=== PATIENT | male | born 1960 | race Caucasian/White ===

== ENCOUNTER 2020-08-16 10:12 | Day surgery (SDC) | payer OTHER, SELFPAY ==
[2020-08-11 20:56] VITALS: BMI 28.8
--- NOTE | 2020-08-15 12:28 | P.CONAN_ITS ---
HPI - Anesthesia Eval Consult details Narrative: 59yo M for Colonoscopy [facility] Past Medical History Medical History CHF (congestive heart failure) COPD (chronic obstructive pulmonary disease) HTN (hypertension) Smoker Family History Family History Father CVD (cardiovascular disease) Hypertension Mother No problems noted. Family/Other Hx of substance abuse Surgical History Surgical History History of cholecystectomy History of colonoscopy History of hernia repair History of tonsillectomy Ruptured appendix Social History Social History Smoking Status: Current every day smoker Packs Per Day: 0.5 Cigarettes Per Day: 10.0 Years Smoked: 40 Smoked in Last 30 Days: Yes Smoking Quit Date: Thang Patient Interested in Nicotine Replacement: No Patient Given Instructions on How to Stop Smoking: No Second Hand Smoke Exposure: No Use of substances other than those prescribed or required for medical reasons: No Advance Directives: No Advance Directives Information Provided: No Advance Directives on File: No Meds Allergies Allergy/AdvReac Type Severity Reaction Status Date / Time No Known Allergies Allergy Verified 07/25/20 11:13 Home Medications Medication Instructions Recorded Confirmed Type albuterol sulfate 90 mcg/actuation 1 puff PO Q4H PRN 07/25/20 08/11/20 History aerosol inhaler carvedilol 12.5 mg tablet 12.5 mg PO BID 07/25/20 08/11/20 History furosemide 40 mg tablet 40 mg PO DAILY 07/25/20 08/11/20 History lisinopril 10 mg tablet 10 mg PO DAILY 07/25/20 08/11/20 History spironolactone 25 mg tablet 25 mg PO DAILY 07/25/20 08/11/20 History umeclidinium 62.5 mcg/actuation 1 inh PO DAILY 07/25/20 08/11/20 History blister powder for inhalation Exam Exam Date and Time: August 15, 2020 1228 Height,Weight and Vital Signs: Height 5 ft 9 in Weight 88.451 kg Pertinent Lab Results Pertinent Lab Results: Laboratory Tests 05/02/20 08:30 Sodium 140 Potassium 4.2 Chloride 104 BUN 14 Creatinine 0.95 Narrative Narrative: EKG 04/2020: SR @80 with freq PVC, nonspecific T wave abn Assessment and Plan Assessment Anesthesia Assessment: Chart Reviewed
[2020-08-16 11:01] VITALS: BP 113/63; PULSE 88; RESP 16; TEMP 36; O2SAT 99
[2020-08-16 11:08] VITALS: BMI 28.8
--- NOTE | 2020-08-16 11:14 | P.CONAN_ITS ---
[facility] Past Medical History Medical History CHF (congestive heart failure) COPD (chronic obstructive pulmonary disease) HTN (hypertension) Smoker Family History Family History Father CVD (cardiovascular disease) Hypertension Mother No problems noted. Family/Other Hx of substance abuse Surgical History Surgical History History of cholecystectomy History of colonoscopy History of hernia repair History of tonsillectomy Ruptured appendix Social History Social History Smoking Status: Current every day smoker Packs Per Day: 0.5 Cigarettes Per Day: 10.0 Years Smoked: 40 Smoked in Last 30 Days: Yes Smoking Quit Date: Thang Patient Interested in Nicotine Replacement: No Patient Given Instructions on How to Stop Smoking: No Second Hand Smoke Exposure: No Use of substances other than those prescribed or required for medical reasons: No Advance Directives: No Advance Directives Information Provided: No Advance Directives on File: No Meds Allergies Allergy/AdvReac Type Severity Reaction Status Date / Time No Known Allergies Allergy Verified 07/25/20 11:13 Home Medications Medication Instructions Recorded Confirmed Type albuterol sulfate 90 mcg/actuation 1 puff PO Q4H PRN 07/25/20 08/11/20 History aerosol inhaler carvedilol 12.5 mg tablet 12.5 mg PO BID 07/25/20 08/11/20 History furosemide 40 mg tablet 40 mg PO DAILY 07/25/20 08/11/20 History lisinopril 10 mg tablet 10 mg PO DAILY 07/25/20 08/11/20 History spironolactone 25 mg tablet 25 mg PO DAILY 07/25/20 08/11/20 History umeclidinium 62.5 mcg/actuation 1 inh PO DAILY 07/25/20 08/11/20 History blister powder for inhalation Exam Exam Date and Time: August 16, 2020 1114 Height,Weight and Vital Signs: Height 5 ft 9 in Weight 88.451 kg Last Vital Signs Temp 96.8 F 08/16/20 11:01 Pulse 88 08/16/20 11:01 Resp 16 08/16/20 11:01 BP 113/63 08/16/20 11:01 Pulse Ox 99 08/16/20 11:01 Airway Mallampati Class: I TM Dist: >3cm Neck ROM: Full Heart: RRR Lungs: CTA
--- NOTE | 2020-08-16 11:15 | P.CONAN_ITS ---
[facility] Past Medical History Medical History CHF (congestive heart failure) COPD (chronic obstructive pulmonary disease) HTN (hypertension) Smoker Family History Family History Father CVD (cardiovascular disease) Hypertension Mother No problems noted. Family/Other Hx of substance abuse Surgical History Surgical History History of cholecystectomy History of colonoscopy History of hernia repair History of tonsillectomy Ruptured appendix Social History Social History Smoking Status: Current every day smoker Packs Per Day: 0.5 Cigarettes Per Day: 10.0 Years Smoked: 40 Smoked in Last 30 Days: Yes Smoking Quit Date: Thang Patient Interested in Nicotine Replacement: No Patient Given Instructions on How to Stop Smoking: No Second Hand Smoke Exposure: No Use of substances other than those prescribed or required for medical reasons: No Advance Directives: No Advance Directives Information Provided: No Advance Directives on File: No Meds Allergies Allergy/AdvReac Type Severity Reaction Status Date / Time No Known Allergies Allergy Verified 07/25/20 11:13 Home Medications Medication Instructions Recorded Confirmed Type albuterol sulfate 90 mcg/actuation 1 puff PO Q4H PRN 07/25/20 08/11/20 History aerosol inhaler carvedilol 12.5 mg tablet 12.5 mg PO BID 07/25/20 08/11/20 History furosemide 40 mg tablet 40 mg PO DAILY 07/25/20 08/11/20 History lisinopril 10 mg tablet 10 mg PO DAILY 07/25/20 08/11/20 History spironolactone 25 mg tablet 25 mg PO DAILY 07/25/20 08/11/20 History umeclidinium 62.5 mcg/actuation 1 inh PO DAILY 07/25/20 08/11/20 History blister powder for inhalation Exam Exam Date and Time: August 16, 2020 1115 Height,Weight and Vital Signs: Height 5 ft 9 in Weight 88.451 kg Last Vital Signs Temp 96.8 F 08/16/20 11:01 Pulse 88 08/16/20 11:01 Resp 16 08/16/20 11:01 BP 113/63 08/16/20 11:01 Pulse Ox 99 08/16/20 11:01 Assessment and Plan Assessment Anesthesia Assessment: Anesthesia Plan Discussed, Smoking Cess. Discussed and Chart Reviewed Final Anesthetic Review NPO: Yes ASA Class: III Final Preanesthetic Review: No Changes in Pt Med Stat, Meds/Allgs Chart Reviewed, Consent Obtained/Reviewed and Anes Risks/Benef Reviewed Patient Risk: Intermediate Procedure Risk: Low Anesthetic Plan Anesthetic Plan: MAC: Disposition: Standard PACU
--- NOTE | 2020-08-16 11:16 | MHC.SHP ---
Pre-Procedural Eval Section B Chief Complaint: Screening Details of Present Illness: Colon cancer Screening, No med or clinical changes since 06/02/20 Relevant Family History (Specify if Yes): No Relevant Social History: Tobacco Use (1/2ppd down from heavy) Present Medications: see Short Stay Collaborative assessment Medical History: Significant History (COPD, Hypertension, hx Congestive Failure) History of Previous Operations: Relevant previous surgery/procedure and date(s) (Hernia repair, gallbladder removal) Allergies: Allergies Allergy/AdvReac Type Severity Reaction Status Date / Time No Known Allergies Allergy Verified 07/25/20 11:13 Review of Systems Sugical H&P ROS: Negative: Constitution, Gastrointestinal and Musculoskeletal and Yes, Specify: Cardiovascular (? hx of CHF) and Respiratory (COPD--still smoking) Exam Surgical H&P Exam: Normal: HEENT, Normal: Heart and Normal: Abdomen (obese) and Significant Findings: Lungs (hyperresonant, rhonchi,) Plan Diagnosis/Plan: Unchanged Patient has been examined and remains a candidate for the planned procedure--YES
--- NOTE | 2020-08-16 11:31 | HO.ANESPROP2 ---
PENDING SALE TO [facility] Past Medical History Medical History CHF (congestive heart failure) COPD (chronic obstructive pulmonary disease) HTN (hypertension) Smoker Family History Family History Father CVD (cardiovascular disease) Hypertension Mother No problems noted. Family/Other Hx of substance abuse Surgical History Surgical History History of cholecystectomy History of colonoscopy History of hernia repair History of tonsillectomy Ruptured appendix Social History Social History Smoking Status: Current every day smoker Packs Per Day: 0.5 Cigarettes Per Day: 10.0 Years Smoked: 40 Smoked in Last 30 Days: Yes Smoking Quit Date: Thang Patient Interested in Nicotine Replacement: No Patient Given Instructions on How to Stop Smoking: No Second Hand Smoke Exposure: No Use of substances other than those prescribed or required for medical reasons: No Advance Directives: No Advance Directives Information Provided: No Advance Directives on File: No Meds Allergies Allergy/AdvReac Type Severity Reaction Status Date / Time No Known Allergies Allergy Verified 07/25/20 11:13 Home Medications Medication Instructions Recorded Confirmed Type albuterol sulfate 90 mcg/actuation 1 puff PO Q4H PRN 07/25/20 08/11/20 History aerosol inhaler carvedilol 12.5 mg tablet 12.5 mg PO BID 07/25/20 08/11/20 History furosemide 40 mg tablet 40 mg PO DAILY 07/25/20 08/11/20 History lisinopril 10 mg tablet 10 mg PO DAILY 07/25/20 08/11/20 History spironolactone 25 mg tablet 25 mg PO DAILY 07/25/20 08/11/20 History umeclidinium 62.5 mcg/actuation 1 inh PO DAILY 07/25/20 08/11/20 History blister powder for inhalation Exam Exam Date and Time: August 16, 2020 1131 Height,Weight and Vital Signs: Height 5 ft 9 in Weight 88.451 kg Last Vital Signs Temp 96.8 F 08/16/20 11:01 Pulse 88 08/16/20 11:01 Resp 16 08/16/20 11:01 BP 113/63 08/16/20 11:01 Pulse Ox 99 08/16/20 11:01
--- NOTE | 2020-08-16 12:08 | PM.PROC ---
Brief Operative Note Date of procedure: 08/16/20 Pre-op diagnosis: COLON CANCER SCREENING, NO KNOWN HIGH RISK Post-op diagnosis: other (SIGMOID POLYP, 2+ INTERNAL HEMORRHOIDS) Procedure: COLONOSCOPY WITH HOT SNARE POLYPECTOMY(ERBE) CAUTERY, RESOLUITION CLIPPING X1 Anesthesia: MAC (md AIME) Surgeon: Luz Saab Estimated blood loss (mL): 5 Pathology: other (POLYP--22 CM) Condition: stable Disposition: PACU
[2020-08-16 12:10] VITALS: BP 82/53; PULSE 89; RESP 16; TEMP 36.2; O2SAT 95
--- NOTE | 2020-08-16 12:14 | PM.PROC ---
Brief Operative Note Date of procedure: 08/16/20 Pre-op diagnosis: colon cancer screening Post-op diagnosis: other (Colon polyp, Internal hemorrhoids) Procedure: colonoscopy with hot snare polypectomy Resolution clipping (ERBE) Anesthesia: MAC (MD Catalino) Surgeon: Luz Saab Estimated blood loss (mL): 5 Pathology: other (polyp @ 22 cm) Condition: stable Disposition: PACU
[2020-08-16 12:25] VITALS: BP 111/79; PULSE 78; RESP 16; TEMP 36.2; O2SAT 98
--- NOTE | 2020-08-16 13:44 | HO.POSTANES ---
Post Anesthesia Evaluation Post Anesthesia Evaluation Vital Signs: Vital Signs Temp Pulse Resp BP Pulse Ox 08/16/20 12:25 97.1 F 78 16 111/79 98 08/16/20 12:10 97.1 F 89 16 82/53 L 95 08/16/20 11:01 96.8 F 88 16 113/63 99 Anesthesia: Monitored (tiva) Mental Status: Awake Pain Control: Satisfactory Nausea/Vomiting: None Hydration: Adequate Anesthesia-Related Issues: No Anes. Related Issues
== END 2020-08-16 13:27 | disposition home or self-care (01) ==
PROVIDERS: PCP Family Medicine; Visit Provider Internal Medicine Gastroenterology
PROC: 0DJD8ZZ Inspection of Lower Intestinal Tract, Via Natural or Artificial Opening Endoscopic (ICD-10-PCS; CPT 45378; principal; 2020-08-16 11:30)
DX: Z12.11 Encounter for screening for malignant neoplasm of colon (principal); D12.5 Benign neoplasm of sigmoid colon; I11.0 Hypertensive heart disease with heart failure; I50.9 Heart failure, unspecified; J44.9 Chronic obstructive pulmonary disease, unspecified; F17.210 Nicotine dependence, cigarettes, uncomplicated; Z90.49 Acquired absence of other specified parts of digestive tract; Z79.899 Other long term (current) drug therapy
CPT/HCPCS: 45385; 88305

== ENCOUNTER 2020-08-25 09:55 | Outpatient (REF) | payer OTHER, SELFPAY ==
--- NOTE | 2020-08-17 16:29 | OP_ITS ---
SURGEON: Luz Saab MD PREOPERATIVE DIAGNOSIS: Colon cancer screening, last exam more than 15 years ago. POSTOPERATIVE DIAGNOSIS: Adenomatous polyp at 22 cm, 2+ internal hemorrhoids. PROCEDURE PERFORMED: Colonoscopy with hot snare polypectomy (ERBE cautery use).Resolution clipping was done. ESTIMATED BLOOD LOSS: Minimal. COMPLICATIONS:NONE ANESTHESIA:Monitored ANESTHESIOLOGIST: Dr. Bae. ASSISTANTS: No curriculum assistant principal. PRIMARY CARE PROVIDER: Sandeep Saunders CNP PHOTOLITHOGRAPHER: Dr. Saab. SPECIMENS REMOVED: Polyp at 22 cm, short stalk. GRAFTS OR IMPLANTS: Resolution clipping was placed. No complications. FINDINGS: Digital rectal exam revealed prostate to be unremarkable. Video colonoscope was introduced without difficulty. It was navigated into the rectosigmoid and sigmoid on up through descending, transverse colon. There was a suggestion in the rectosigmoid prolapse movement through the area, demonstrated a mild rectocele which affected insertion. In addition, the patient was moved from his left side to his back to his right side. It was noted that he had a very distorted abdominal wall due to past surgical complication of a ventral hernia repair with dehiscence and prolonged hospitalization. Attempts to move the scope were limited by extrinsic abdominal adhesions. After multiple attempts, the plan was to slowly withdraw the scope. The prep was good. There was some turbid but nonfibrous residual fluid that was just flushed and suctioned. We came upon the polyp at 22 cm and removed it with hot snare cautery, clean base. Continued removal showed 2+ internal hemorrhoids in the anal canal. COMMENT: The patient states his abdominal surgery was approximately 5 years ago. He was hospitalized at [facility] for question 6 months period of time. During that admission, he had been in an induced coma. There was special equipment brought in to assist in the closure of the wound that dehisced. The skin texture change is due to pig skin graft to the remainder of the abdominal wall. We will explore CT imaging at some point in the next 6 months to outline the characteristics of the colonic architecture. Repeat screening timing will be dictated by those findings. Should not exceed 3 years. Luz Saab MD MEN/MODL / [id number] [facility]
--- NOTE | 2020-08-25 | PFT_ITS ---
INDICATION: COPD. SPIROMETRY: The FEV1 to FVC of 70% with an FEV1 of 2.56 L, which is 74% predicted and an FVC of 3.67 L, which is 80% predicted. No significant response to bronchodilators noted. To note, the [id number] is down to 41% predicted prior to bronchodilators. Maximum voluntary ventilation 58% predicted. LUNG VOLUMES: Total lung capacity 82% predicted with an expiratory reserve volume of 69% predicted and a residual volume of 101% predicted. DIFUSION CAPACITY: DLCO 55% predicted. COMPARISON: None. INTERPRETATION: There is an obstructive ventilatory defect consistent with moderate chronic obstructive pulmonary disease. No significant response to bronchodilators noted. There is also significant small airways disease from underlying chronic obstructive pulmonary disease. The patient has a low normal total lung capacity and a moderate diffusion impairment likely secondary to emphysema and all the parenchymal conditions should be considered. Clinical correlation warranted. Placido Waldrop MD MR/MODL / [id number]
== END 2020-08-25 09:56 | disposition home or self-care (01) ==
LOC: HO.RESP 09:55
PROVIDERS: PCP Family Medicine; Visit Provider Family Medicine
DX: I50.9 Heart failure, unspecified (principal)
CPT/HCPCS: 94060; 94727; 94729

== ENCOUNTER 2021-09-20 09:19 | Outpatient (REF) | payer OTHER, SELFPAY ==
--- NOTE | ~2021-09-20 | XR_ITS ---
EXAMINATION: XR CHEST CLINICAL INFORMATION: Chronic obstructive pulmonary disease. COMPARISON: May 23, 2020 TECHNIQUE: 2 views of the chest were obtained. FINDINGS: There are increased interstitial markings in the lower lobes consistent with some degree of chronic interstitial lung disease. No acute parenchymal disease identified. No pneumothorax or pleural effusion. Heart normal size. No evidence of pulmonary edema. XR/XR chest 2V IMPRESSION: No acute disease. Chronic interstitial lung disease.
== END 2021-09-20 09:20 | disposition home or self-care (01) ==
LOC: HO.HMGCX 09:19
PROVIDERS: PCP Family Medicine; Visit Provider Hospitalist
DX: J44.9 Chronic obstructive pulmonary disease, unspecified (principal); J84.9 Interstitial pulmonary disease, unspecified; F17.200 Nicotine dependence, unspecified, uncomplicated
CPT/HCPCS: 71046

== ENCOUNTER 2022-03-27 08:59 | Outpatient (REF) | payer OTHER, SELFPAY ==
[2022-03-27 11:51] LABS: Hematocrit 46.3 % (42.0-52.0); Hemoglobin 15.2 g/dl (14.0-18.0); Mean Corpuscular HGB Conc 32.8 g/dl (31.0-36.0); Mean Corpuscular Hemoglobin 30.7 pg (27.0-33.0); Mean Corpuscular Volume 93.5 fL (80.0-98.0); Platelet Count 344 X10*3/uL (160-400); Red Blood Count 4.95 X10*6/uL (4.60-5.80); Red Cell Distribution Width 13.7 % (11.0-16.0); White Blood Count 9.9 X10*3/uL (4.8-10.8)
[2022-03-27 12:11] LABS: Alanine Aminotransferase 14 U/L (0-40); Alkaline Phosphatase 89 U/L (39-117); Anion Gap 13 (12-20); Aspartate Amino Transferase 12 U/L (5-37); Bilirubin Total 0.7 mg/dL (0.0-1.0); Blood Urea Nitrogen 11 mg/dL (9-16); Calcium 9.3 mg/dL (8.4-10.2); Carbon Dioxide 26 mmol/L (22-29); Chloride 102 mmol/L (96-108); Cholesterol 183 mg/dL; Estimated Glomerular Filt Rate > 60; Glucose Random 97 mg/dL (60-115); HDL Cholesterol 52 mg/dL; LDL Cholesterol Calculated 110 mg/dl; Potassium 4.4 mmol/L (3.3-5.1); Sodium 137 mmol/L (135-145); Total Protein 7.3 g/dL (6.5-8.0); Triglycerides 109 mg/dL
[2022-03-27 12:36] LABS: PSA,Total (Free>4and<10) 0.89 ng/mL (0.00-4.00); TSH reflex Free T4 0.51 uIU/mL (0.32-4.0)
== END 2022-03-27 09:00 | disposition home or self-care (01) ==
LOC: HO.WFDLDS 08:59
PROVIDERS: Visit Provider Hospitalist
DX: Z00.00 Encounter for general adult medical examination without abnormal findings (principal); Z12.5 Encounter for screening for malignant neoplasm of prostate; F17.200 Nicotine dependence, unspecified, uncomplicated
CPT/HCPCS: 36415; 80053; 80061; 84153; 84443; 85027

== ENCOUNTER 2022-08-17 09:26 | Outpatient (REF) | payer OTHER, SELFPAY ==
--- NOTE | ~2022-08-17 | XR_ITS ---
EXAMINATION: XR CHEST CLINICAL INFORMATION: Chronic obstructive pulmonary disease with exacerbation COMPARISON: 09/20/2021 TECHNIQUE: 2 views of the chest were obtained. FINDINGS: The lungs are well expanded. Eventration of the left hemidiaphragm posteriorly. There is no focal consolidation, edema, or effusion. No pneumothorax. The cardiomediastinal silhouette is within normal limits. No acute osseous abnormality. XR/XR chest 2V IMPRESSION: No acute pulmonary finding.
[2022-08-17 11:27] LABS: MANUAL DIFF FLAG NO
[2022-08-17 11:52] LABS: Basophils Absolute Auto 0.2 X10*3/uL (0.0-0.2); Basophils Percent Auto 2.1 % (0-2); Eosinophils Absolute Auto 0.7 X10*3/uL (0.0-0.4); Eosinophils Percent Auto 7.2 % (0-4); Hemoglobin 15.9 g/dl (14.0-18.0); Imm Gran Abs Auto 0.04 X10*3/uL (0.00-0.03); Imm Gran Pct Auto 0.4 % (0.0-0.4); Lymphocytes Absolute Auto 2.5 X10*3/uL (1.2-4.9); Lymphocytes Percent Auto 25.5 % (20-40); Mean Corpuscular HGB Conc 33.1 g/dl (31.0-36.0); Mean Corpuscular Hemoglobin 30.9 pg (27.0-33.0); Mean Corpuscular Volume 93.4 fL (80.0-98.0); Mean Platelet Volume 9.7 fL (9.4-12.4); Monocytes Absolute Auto 0.8 X10*3/uL (0.1-1.2); Monocytes Percent Auto 8.2 % (2-11); Neutrophils Absolute Auto 5.6 x10*3/uL (2.0-8.3); Neutrophils Percent Auto 56.6 % (45-73); Platelet Count 358 X10*3/uL (160-400); Red Blood Count 5.14 X10*6/uL (4.60-5.80); Red Cell Distribution Width 13.2 % (11.0-16.0)
[2022-08-17 12:09] LABS: Alanine Aminotransferase 15 U/L (0-40); Albumin Level 4.2 g/dL (3.5-5.0); Alkaline Phosphatase 93 U/L (39-117); Anion Gap 17 (12-20); Aspartate Amino Transferase 14 U/L (5-37); Bilirubin Total 0.8 mg/dL (0.0-1.0); Blood Urea Nitrogen 12 mg/dL (9-16); Calcium 9.9 mg/dL (8.4-10.2); Carbon Dioxide 24 mmol/L (22-29); Chloride 101 mmol/L (96-108); Estimated Glomerular Filt Rate > 60; Glucose Random 101 mg/dL (60-115); Potassium 4.4 mmol/L (3.3-5.1); Sodium 138 mmol/L (135-145); Total Protein 7.7 g/dL (6.5-8.0)
[2022-08-17 12:21] LABS: B Type Natriuretic Peptide 102 pg/mL (<100)
== END 2022-08-17 09:27 | disposition home or self-care (01) ==
LOC: HO.WFDLDS 09:26
PROVIDERS: PCP Family Medicine; Visit Provider Family Medicine
DX: Z00.00 Encounter for general adult medical examination without abnormal findings (principal); J44.1 Chronic obstructive pulmonary disease with (acute) exacerbation; R05.3 Chronic cough; I50.9 Heart failure, unspecified; Z86.79 Personal history of other diseases of the circulatory system
CPT/HCPCS: 36415; 71046; 80053; 83880; 85025

== ENCOUNTER 2023-04-29 09:42 | Outpatient (AMB) | payer OTHER, SELFPAY ==
[2023-04-29 09:52] VITALS: BP 110/68; PULSE 85; RESP 13; TEMP 36.6; O2SAT 93; BMI 33.1
--- NOTE | 2023-04-29 09:52 | MHC.PC.OV ---
Vital Signs 04/29/23 09:52 Height 5 ft 9 in Weight 224 lb 8 oz BMI 33.1 BP 110/68 Blood Pressure Location Rt brachial Position Sitting Respiration 13 Pulse 85 Pulse Source Pulse Oximeter Temp 97.9 F Temp Source Temporal Artery Scan Pulse Oximetry (%) 93 Oxygen Delivery Method Room Air Intake Visit Reasons: [facility] f/u Intake Note: Patient states he was in the hospital 04/26/23 for difficulty breathing.Patient would like a refill on Aspirin 81MG as well as Ferrous Gluconate. Patient would like the nicotine patches to help quit smoking. Data Conversion Operator Required: No Accompanied by: Self / Same As Patient Allergies No Known Allergies Allergy (Verified 04/29/23 10:08) Medication List - Last Reconciled 04/29/23 by Lexi Mullins CNP albuterol sulfate 90 mcg/actuation (Ventolin HFA) 2 puffs inhalation QID PRN 30 days aspirin 81 mg PO DAILY 30 days dapagliflozin propanediol (Farxiga) 10 mg PO DAILY 30 days ferrous gluconate mg PO furosemide 40 mg PO DAILY ibuprofen 800 mg PO Q8H PRN metoprolol succinate ER 50 mg PO DAILY prednisone 10 mg PO DIRECTED rosuvastatin 40 mg PO BEDTIME spironolactone 25 mg PO DAILY umeclidinium-vilanterol 62.5-25 mcg/actuation (Anoro Ellipta) 1 ea inhalation DAILY valsartan mg PO BID Tobacco use date assessed: 12/03/22 Fall risk assessment: No Falls in past year Last assessed Fall Risk: 04/29/23 Dental Screening Dental Screen Date: 04/29/23 Did you have a dental visit in the last 12 months?: No Did you have a dental problem in the last 6 months where you did not have access to dental care?: No Was dental information given to patient?: Yes HPI HPI Comments History of Present Illness Details 61-year-old male present for recent hospitalization follow-up. He notes that he was admitted at [facility], between 04/26/2023 and 04/27/2023, and treated for difficulty breathing. Review of hospital notes revealed unremarkable labs and imaging. He was discharged on prednisone taper. He notes that he has been taking prednisone as prescribed with significant improvement. He notes he has not experienced difficulty breathing since he was discharged from the hospital. No acute symptoms today. He notes that he has not smoked cigarette since he was discharged from the hospital. He states he was sent home with 2 nicotine patches and requests more patches for smoking cessation. [facility] Medical History CHF (congestive heart failure) COPD (chronic obstructive pulmonary disease) HTN (hypertension) Smoker Surgical History History of cholecystectomy History of colonoscopy History of hernia repair History of tonsillectomy Ruptured appendix Family History (Updated 04/29/23 @ 10:08 by Ban Ledezma MA) Father CVD (cardiovascular disease) Hypertension Mother No problems noted. Family/Other Hx of substance abuse Social History Housing: House Patient Tobacco Use Status: Current everyday Tobacco user Tobacco use type: Cigarette Cigarette Packs Per Day: 0.5 Cigarettes Per Day: 10.0 Years Smoked: 40 e-Cigarette/Vaping Use: Never Used Second Hand Smoke Exposure: No service: No Current occupational status: retired Current occupational exposures/hazards: No Cognitive needs: No Hearing needs: No Vision needs: No Questionnaire Thrive Questionnaire Date Thrive assessed: 12/03/22 DONG-7 AMB Questionnaire DONG-7 Date DONG - 7 assessed: 12/03/22 Source: Developed by Drs. Boby Lloyd, Dora Lopez, Anuj Freeman and colleagues, with an educational rachana from [employer]. Review of Systems Const Details: Const Denies chills, Denies fatigue, Denies fever(s), Denies headache(s) and Denies weakness ENT Denies dizziness and Denies headache(s) Card Denies chest pain, Denies lightheadedness, Denies dyspnea and Denies other (Palpitations) Resp Denies cough, Denies dyspnea, Denies wheezing and Denies other ( shortness of breath) GI Denies abdominal pain, Denies melena, Denies hematochezia, Denies change in bowel habits, Denies dyspepsia and Denies nausea Denies hematuria and Denies dysuria Musc Denies abnormal gait, Denies myalgias, Denies arthralgias, Denies numbness and Denies tingling Skin/Breast Denies rash, Denies unusual bruising and Denies wounds Neuro Denies abnormal gait, Denies dizziness, Denies headache(s), Denies memory loss, Denies numbness, Denies Sensory deficit (Neuro), Denies tingling and Denies weakness Psych Denies anxiety and Denies depression Endo Denies fatigue Aller/Immun Denies wheezing Physical exam (Primary Care) Vital Signs: Last Vital Signs Temp 97.9 F 04/29/23 09:52 Pulse 85 04/29/23 09:52 Resp 13 04/29/23 09:52 BP 110/68 04/29/23 09:52 Pulse Ox 93 04/29/23 09:52 Oxygen Delivery Method Room Air 04/29/23 09:52 BMI result Body Mass Index 33.1 Tobacco/Smoking Status: Tobacco use Status Tobacco use date assessed 12/03/22 04/29/23 10:09 Patient Tobacco Use Status Current everyday Tobacco 04/29/23 10:09 Tobacco use type Cigarette 04/29/23 10:09 e-Cigarette/Vaping Use Never Used 04/29/23 10:09 Thrive Assessment: Date of Thrive Assessment Date Thrive assessed 12/03/22 04/29/23 10:09 Const Other: General: no acute distress and well developed Nutritional Appearance: well nourished Orientation/consciousness: patient oriented x3 HENMT Head: Yes normocephalic and Yes atraumatic Eyes General: appearance normal, both eyes and all related structures Pupils: Equal, round and reactive pupils present EOM: EOMs intact bilaterally Resp Effort & Inspection: normal respiratory effort Auscultation: clear to auscultation bilaterally Cardio Rate: regular rate Rhythm: regular rhythm Heart sounds: S1 normal heart sound present, S2 normal heart sound present, no gallops, no murmurs and no rubs GI Palpation (GI): No Abdominal aortic bruit present, Soft to palpation, nontender, No hepatosplenomegaly present and No Rebound tenderness present Auscultation: normal bowel sounds General: Yes no CVA tenderness Back/Spine/Pelvis Back: no CVA tenderness Cervical Spine: cervical ROM normal and No Cervical spine tenderness Thoracic/Lumbar Spine: thoraco-lumbar ROM normal, No pain with thoraco-lumbar ROM, No thoracic spinal tenderness and No lumbar spinal tenderness Extrem General: Yes normal to inspection, No edema and No calf tenderness Skin General: warm and dry. Normal skin color. Normal skin turgor Lesions: no lesions Rashes: no rashes Trauma: no lacerations or abrasions Wounds: no wounds Nails: normal Neuro General: patient oriented x3, gait normal and no focal neuro deficit Cranial nerves: Yes Equal, round and reactive pupils present Cognition (Neuro): normal cognition Gait exam (Neuro): Normal gait present Sensory Exam: No Sensory deficit (Neuro) Psych Affect: normal affect Assessment and Plan Assessment & Plan (1) Hospital discharge follow-up: Code(s): Z09 - Encounter for follow-up examination after completed treatment for conditions other than malignant neoplasm Plan: 61-year-old male present for recent hospitalization follow-up. He notes that he was admitted at [facility], between 04/26/2023 and 04/27/2023, and treated for difficulty breathing. Review of hospital notes revealed unremarkable labs and imaging. He was discharged on prednisone taper. He notes that he has been taking prednisone as prescribed with significant improvement. He notes he has not experienced difficulty breathing since he was discharged from the hospital. No acute symptoms today. Continue to take prednisone in order medications, including inhaler as prescribed. Follow-up with PCP for complete physical exam. Return with worsening or new symptoms. Verbalized understanding and agreed with treatment plan. (2) Encounter for smoking cessation counseling: Code(s): Z71.6 - Tobacco abuse counseling Plan: He notes that he has not smoked cigarette since he was discharged from the hospital. He states he was sent home with 2 nicotine patches and requests more patches for smoking cessation. Smoking cessation encouraged Nicotine patch ordered. Take as prescribed Follow-up with symptoms or concerns Verbalized understanding and agreed with treatment plan. Medications: New nicotine 1 patch transdermal DAILY 30 days 28 ea 0RF Changed From ferrous gluconate PO To ferrous gluconate 324 mg orally every other day 30 days 15 tabs 1RF Coding Level of Care Code Est Pt Level 3 (29513) Diagnoses Hospital discharge follow-up Z09 Encounter for smoking cessation counseling Z71.6 Time Spent (min) 25
== END 2023-04-29 10:39 | disposition home or self-care (01) ==
PROVIDERS: PCP Family Medicine; Visit Provider Nurse Practitioner Family
DX: Z09 Encounter for follow-up examination after completed treatment for conditions other than malignant neoplasm (principal); Z71.6 Tobacco abuse counseling
CPT/HCPCS: 99213